=== PATIENT | female | born 1975 ===

== ENCOUNTER 2023-02-08 07:54 | Day surgery (SDC) | payer BC ==
[2023-02-08] MEDS ORDERED: FERRIC CARBOXYMALTOSE 750 MG in SODIUM CHLORIDE 250 ML IVPB ONE (08:30)
[2023-02-08 11:32] VITALS: TEMP 98.3
[2023-02-08 11:33] VITALS: BP 123/75; PULSE 77; RESP 18
== END 2023-02-08 09:40 | disposition home or self-care (01) ==
LOC: JONCNONCHE 07:54 → J7W 07:57 → JONCNONCHE 09:40
PROVIDERS: ATTEND Internal Medicine Hematology & Oncology
PROC: 3E033GC Introduction of Other Therapeutic Substance into Peripheral Vein, Percutaneous Approach (ICD-10-PCS; principal; 2023-02-08)
DX: D50.9 Iron deficiency anemia, unspecified (principal)
CPT/HCPCS: 96365; J1439

== ENCOUNTER 2023-02-15 08:34 | Day surgery (SDC) | payer BC ==
[~2023-02-15 08:34] MED LIST: FERRIC CARBOXYMALTOSE 750 MG in SODIUM CHLORIDE 250 ML IVPB ONE
[2023-02-15] MEDS ORDERED: FERRIC CARBOXYMALTOSE 750 MG in SODIUM CHLORIDE 250 ML IVPB ONE (10:00)
[2023-02-15 16:24] VITALS: BP 157/87; PULSE 75; RESP 20; TEMP 98.1
== END 2023-02-15 10:15 | disposition home or self-care (01) ==
LOC: JONCNONCHE 08:34 → J7W 08:38 → JONCNONCHE 10:15
PROVIDERS: ATTEND Internal Medicine Hematology & Oncology
PROC: 3E033GC Introduction of Other Therapeutic Substance into Peripheral Vein, Percutaneous Approach (ICD-10-PCS; principal; 2023-02-15)
DX: D50.9 Iron deficiency anemia, unspecified (principal)
CPT/HCPCS: 96365; J1439

== ENCOUNTER 2023-07-05 07:40 | Day surgery (SDC) | payer BC ==
[2023-07-05] MEDS: FERRIC CARBOXYMALTOSE 750 MG in SODIUM CHLORIDE 250 ML IVPB ONE ×2 (08:20→09:43)
[2023-07-05 16:46] VITALS: BP 136/85; PULSE 80; RESP 20; TEMP 98.4
== END 2023-07-05 09:20 | disposition home or self-care (01) ==
LOC: JONCNONCHE 07:40 → J7W 07:41 → JONCNONCHE 09:20
PROVIDERS: ATTEND Internal Medicine Hematology & Oncology
PROC: 3E033GC Introduction of Other Therapeutic Substance into Peripheral Vein, Percutaneous Approach (ICD-10-PCS; principal; 2023-07-05)
DX: D50.9 Iron deficiency anemia, unspecified (principal)
CPT/HCPCS: 96365; J1439

== ENCOUNTER 2023-11-08 07:31 | Day surgery (SDC) | payer BC ==
[2023-11-08] MEDS: FERRIC CARBOXYMALTOSE 750 MG in SODIUM CHLORIDE 250 ML IVPB ONE (08:35)
[2023-11-08 15:22] VITALS: RESP 18; TEMP 98.3
[2023-11-08 15:23] VITALS: BP 120/69; PULSE 70
== END 2023-11-08 09:30 | disposition home or self-care (01) ==
LOC: JONCNONCHE 07:31 → J7W 07:32 → JONCNONCHE 09:30
PROVIDERS: ATTEND Internal Medicine Hematology & Oncology
PROC: 3E033GC Introduction of Other Therapeutic Substance into Peripheral Vein, Percutaneous Approach (ICD-10-PCS; principal; 2023-11-08)
DX: D50.9 Iron deficiency anemia, unspecified (principal)
CPT/HCPCS: 96365; J1439

== ENCOUNTER 2023-11-15 07:33 | Day surgery (SDC) | payer BC ==
[2023-11-15] MEDS: FERRIC CARBOXYMALTOSE 750 MG in SODIUM CHLORIDE 250 ML IVPB ONE (08:30)
[2023-11-15 17:12] VITALS: RESP 18; TEMP 98.5
[2023-11-15 17:13] VITALS: BP 132/88; PULSE 69
== END 2023-11-15 09:35 | disposition home or self-care (01) ==
LOC: J7W 07:33 → JONCCHEMO 07:33
PROVIDERS: ATTEND Internal Medicine Hematology & Oncology
PROC: 3E033GC Introduction of Other Therapeutic Substance into Peripheral Vein, Percutaneous Approach (ICD-10-PCS; principal; 2023-11-15)
DX: D50.9 Iron deficiency anemia, unspecified (principal)
CPT/HCPCS: 96365; J1439

== ENCOUNTER 2024-01-08 08:20 | Day surgery (SDC) | payer BC ==
[2024-01-08] MEDS: FERRIC CARBOXYMALTOSE 750 MG in SODIUM CHLORIDE 250 ML IVPB ONE (09:18)
[2024-01-08 12:22] VITALS: BP 126/78; PULSE 72; RESP 20; TEMP 98.3
== END 2024-01-08 10:12 | disposition home or self-care (01) ==
LOC: JONCNONCHE 08:20 → J7W 08:30 → JONCNONCHE 10:12
PROVIDERS: ATTEND Internal Medicine Hematology & Oncology
PROC: 3E033GC Introduction of Other Therapeutic Substance into Peripheral Vein, Percutaneous Approach (ICD-10-PCS; principal; 2024-01-08)
DX: D50.9 Iron deficiency anemia, unspecified (principal)
CPT/HCPCS: 96365; J1439

== ENCOUNTER 2024-01-15 08:00 | Day surgery (SDC) | payer BC ==
[2024-01-15] MEDS: FERRIC CARBOXYMALTOSE 750 MG in SODIUM CHLORIDE 250 ML IVPB ONE (08:42)
[2024-01-15 13:50] VITALS: BP 124/76; PULSE 56; RESP 18; TEMP 98.2
== END 2024-01-15 09:40 | disposition home or self-care (01) ==
LOC: J7W 08:00 → JONCNONCHE 08:00
PROVIDERS: ATTEND Internal Medicine Hematology & Oncology
PROC: 3E033GC Introduction of Other Therapeutic Substance into Peripheral Vein, Percutaneous Approach (ICD-10-PCS; principal; 2024-01-15)
DX: D50.9 Iron deficiency anemia, unspecified (principal)
CPT/HCPCS: 96365; J1439

== ENCOUNTER 2024-09-11 08:36 | Day surgery (SDC) | payer BC, OTHER ==
[2024-09-11] MEDS: FERRIC CARBOXYMALTOSE 750 MG in SODIUM CHLORIDE 250 ML IVPB ONE (09:15)
[2024-09-11 14:38] VITALS: TEMP 98.2
[2024-09-11 14:42] VITALS: BP 159/81; PULSE 77; RESP 18
== END 2024-09-11 10:15 | disposition home or self-care (01) ==
LOC: JONCCHEMO 08:36 → J7W 08:37 → JONCCHEMO 10:15
PROVIDERS: ATTEND Internal Medicine Hematology & Oncology
PROC: 3E033GC Introduction of Other Therapeutic Substance into Peripheral Vein, Percutaneous Approach (ICD-10-PCS; principal; 2024-09-11)
DX: D50.9 Iron deficiency anemia, unspecified (principal)
CPT/HCPCS: 96365; J1439

== ENCOUNTER 2024-09-18 08:35 | Day surgery (SDC) | payer BC, OTHER ==
[2024-09-18] MEDS: FERRIC CARBOXYMALTOSE 750 MG in SODIUM CHLORIDE 250 ML IVPB ONE (08:51)
[2024-09-18 12:06] VITALS: BP 124/85; PULSE 68; RESP 16; TEMP 98.3
== END 2024-09-18 09:45 | disposition home or self-care (01) ==
LOC: JONCCHEMO 08:35 → J7W 08:35 → JONCCHEMO 09:45
PROVIDERS: ATTEND Internal Medicine Hematology & Oncology
PROC: 3E033GC Introduction of Other Therapeutic Substance into Peripheral Vein, Percutaneous Approach (ICD-10-PCS; principal; 2024-09-18)
DX: D50.9 Iron deficiency anemia, unspecified (principal)
CPT/HCPCS: 96365; J1439

== ENCOUNTER 2025-07-16 10:08 | Day surgery (SDC) | payer BC, OTHER ==
[2025-07-16] MEDS: FERRIC CARBOXYMALTOSE 750 MG in SODIUM CHLORIDE 250 ML IVPB ONE (10:37)
[2025-07-16 11:39] VITALS: BP 148/76; PULSE 72; RESP 20; TEMP 98.2
== END 2025-07-16 11:41 | disposition home or self-care (01) ==
LOC: JONCNONCHE 10:08 → J7W 10:12 → JONCNONCHE 11:41
PROVIDERS: ATTEND Internal Medicine Hematology & Oncology
PROC: 3E033GC Introduction of Other Therapeutic Substance into Peripheral Vein, Percutaneous Approach (ICD-10-PCS; principal; 2025-07-16)
DX: D50.9 Iron deficiency anemia, unspecified (principal)
CPT/HCPCS: 96365; J1439

== ENCOUNTER 2025-07-23 08:09 | Day surgery (SDC) | payer BC, OTHER ==
[2025-07-23 08:39] VITALS: RESP 18; TEMP 98.4
[2025-07-23] MEDS: FERRIC CARBOXYMALTOSE 750 MG in SODIUM CHLORIDE 250 ML IVPB ONE (09:15)
[2025-07-23 10:44] VITALS: BP 140/89; PULSE 79
== END 2025-07-23 10:20 | disposition home or self-care (01) ==
LOC: JONCNONCHE 08:09
PROVIDERS: ATTEND Internal Medicine Hematology & Oncology
PROC: 3E033GC Introduction of Other Therapeutic Substance into Peripheral Vein, Percutaneous Approach (ICD-10-PCS; principal; 2025-07-23)
DX: D50.9 Iron deficiency anemia, unspecified (principal)
CPT/HCPCS: J1439